=== PATIENT | male | born 1930 | race Caucasian/White ===

== ENCOUNTER → 2017-01-04 | Outpatient (CLI) | payer MEDICARE, OTHER ==
[~2017-01-04] MED LIST: ARTIFICIAL TEAR30 ML; ASPIRIN 81M81 MG/TA2 PO; CEPHALEXIN500 M1 PO; COMBIRESP IH; COREG 25MG25 MG/TAB PO; CYANOCOBAL1000 MCG/1; FLOMAX 0.40.4 MG/CAP PO; FOLIC ACID 11 MG/TA1 PO; FOSAMAX 70MG TA70 MG PO; LASIX 20MG TABL20 MG PO; LIPITOR20 MG PO; MAG-OX 400400 MG/TAB PO; MULTIPLE VITAMI1 CAP PO; NATURE'S BLEND400 IU PO; NORVASC 5MG5 MG/TAB PO; OSCAL 500 TAB500 MG PO; PACERONE100 MG PO; PLAVIX 75MG TAB75 MG PO; PRAVACHOL 20MG20 MG PO; PRIL40 PO; PRILOSEC 20MG20 MG PO; PRILOSEC10 MG PO; PRINIVIL2.5 MG PO; PRINIVIL20 MG PO; PRINZIDE 25 MG-1 TAB PO; PROVIGIL 100MG100 MG PO; TICLID250 MG PO; TYLENOL EXTRA500 M1 PO; VITAMIN E 400 U4001 PO; ZOCOR 20MG20 MG PO
[2017-01-04 11:27] LABS: BASO # 0.1 (0.0-0.2); BASO % 0.7 % (0.0-2.0); GRAN # 7.4 (1.4-6.5); LYMPH # 2.1 (1.2-3.4); LYMPH % 17.5 % (20.0-51.0); MEAN CELL VOLUME 101 fl (80.0-100.0); MEAN CORPUSCULAR HGB CONC 31 g/dl (33.0-37.0); MEAN PLATELET VOLUME 9.7 fl (7.4-10.4); MONO # 1.4 (0.1-0.6); MONO % 11.9 % (1.7-9.3); PLATELET COUNT 308 K/mm3 (130-400); RED BLOOD COUNT 3.11 M/mm3 (4.20-5.60); REDCELL DISTRIBUTION WIDTH-CV 14.7 % (11.5-14.5); WHITE BLOOD COUNT 12.1 K/mm3 (4.8-10.8)
[2017-01-04 11:28] LABS: HEMATOCRIT 31.4 % (42.0-52.0); HEMOGLOBIN 9.8 g/dl (13.5-18.0); MEAN CORPUSCULAR HEMOGLOBIN 32 pg (27.0-31.0)
== END ==
LOC: ZCOL.LAB 10:00
PROVIDERS: Emergency Medicine
DX: I21.4 Non-ST elevation (NSTEMI) myocardial infarction (principal)

== ENCOUNTER 2017-01-15 23:06 | Emergency (ER) | payer MEDICARE, OTHER ==
[~2017-01-15] VITALS: Ht 165.1 cm; Wt 70.5 kg
[~2017-01-15 23:06] MED LIST changes: -ASPIRIN 81M81 MG/TA2 PO; -COMBIRESP IH; -COREG 25MG25 MG/TAB PO; -MAG-OX 400400 MG/TAB PO; -PACERONE100 MG PO; -PRAVACHOL 20MG20 MG PO; -PRIL40 PO; -PRINIVIL2.5 MG PO; -PROVIGIL 100MG100 MG PO
[2017-01-15 23:09] VITALS: TEMP 97.9
[2017-01-16 00:28] LABS: BASO # 0.1 (0.0-0.2); BASO % 0.5 % (0.0-2.0); EOS # 0.8 (0.0-0.7); EOS % 7.1 % (0-4.0); GRAN # 7.2 (1.4-6.5); GRAN % 63.5 % (42.2-75.2); HEMATOCRIT 36.6 % (42.0-52.0); HEMOGLOBIN 11.7 g/dl (13.5-18.0); LYMPH # 1.8 (1.2-3.4); LYMPH % 15.8 % (20.0-51.0); MEAN CELL VOLUME 99 fl (80.0-100.0); MEAN CORPUSCULAR HEMOGLOBIN 32 pg (27.0-31.0); MEAN CORPUSCULAR HGB CONC 32 g/dl (33.0-37.0); MEAN PLATELET VOLUME 9.8 fl (7.4-10.4); MONO # 1.4 (0.1-0.6); MONO % 12.4 % (1.7-9.3); PLATELET COUNT 263 K/mm3 (130-400); RED BLOOD COUNT 3.71 M/mm3 (4.20-5.60); REDCELL DISTRIBUTION WIDTH-CV 14.6 % (11.5-14.5); WHITE BLOOD COUNT 11.3 K/mm3 (4.8-10.8)
[2017-01-16] MEDS ORDERED: PACERONE100 MG PO (00:30)
[2017-01-16] MEDS ORDERED: COREG 25MG25 MG/TAB PO (00:31)
[2017-01-16] MEDS ORDERED: ASPIRIN 81M81 MG/TA2 PO (00:31)
[2017-01-16] MEDS ORDERED: PRINIVIL2.5 MG PO (00:31)
[2017-01-16] MEDS ORDERED: MAG-OX 400400 MG/TAB PO (00:32)
[2017-01-16] MEDS ORDERED: PRIL40 PO (00:32)
[2017-01-16] MEDS ORDERED: PROVIGIL 100MG100 MG PO (00:32)
[2017-01-16] MEDS ORDERED: PRAVACHOL 20MG20 MG PO (00:32)
[2017-01-16] MEDS ORDERED: COMBIRESP IH (00:33)
[2017-01-16 00:35] LABS: PH 7 (5-8); SQUAMOUS EPITHELIAL None Seen /hpf; URINE APPEARANCE Hazy; URINE BACTERIA Rare /hpf; URINE BILIRUBIN Negative (NEGATIVE); URINE BLOOD 3+ (NEGATIVE); URINE COLOR Yellow; URINE GLUCOSE Negative (NEGATIVE); URINE KETONE Negative (NEGATIVE); URINE RBC 20-50 /hpf; URINE UROBILINOGEN Negative (NEGATIVE); URINE WBC 20-50 /hpf
[2017-01-16 00:39] LABS: ALBUMIN 3.2 gm/dL (3.5-5.0); BILIRUBIN,TOTAL 0.7 mg/dL (0.0-1.0); CALCIUM 10.4 mg/dL (8.4-10.2); CREATININE, serum 0.72 mg/dL (0.66-1.25); POTASSIUM 3.2 mmol/L (3.4-5.0); TOTAL PROTEIN 6.9 gm/dL (6.4-8.2)
[2017-01-16 01:10] VITALS: BP 125/79; PULSE 79
== END 2017-01-16 01:46 | disposition home or self-care (01) ==
LOC: COL.ER 23:06
PROVIDERS: Emergency Medicine
DX: T83.091A Other mechanical complication of indwelling urethral catheter, initial encounter (principal); R31.9 Hematuria, unspecified; I10 Essential (primary) hypertension; Z79.02 Long term (current) use of antithrombotics/antiplatelets
CPT/HCPCS: A4315

== ENCOUNTER → 2017-02-02 | Outpatient (CLI) | payer MEDICARE, OTHER ==
[~2017-02-02] MED LIST changes: +ASPIRIN 81M81 MG/TA2 PO; +COMBIRESP IH; +COREG 25MG25 MG/TAB PO; +MAG-OX 400400 MG/TAB PO; +PACERONE100 MG PO; +PRAVACHOL 20MG20 MG PO; +PRIL40 PO; +PRINIVIL2.5 MG PO; +PROVIGIL 100MG100 MG PO
== END ==
LOC: ZCOL.LAB 15:39
DX: E03.8 Other specified hypothyroidism (principal)

== ENCOUNTER → 2017-02-25 | Outpatient (CLI) | payer MEDICARE, OTHER | LOC: ZCOL.LAB 10:15 | DX: Z53.9 Procedure and treatment not carried out, unspecified reason (principal) ==

== ENCOUNTER → 2017-02-25 | Outpatient (CLI) | payer MEDICARE, OTHER ==
[2017-02-25 17:53] LABS: CALCIUM 10.5 mg/dL (8.4-10.2); CREATININE, serum 0.64 mg/dL (0.66-1.25); POTASSIUM 4.9 mmol/L (3.4-5.0)
== END ==
LOC: ZCOL.LAB 17:43
PROVIDERS: Emergency Medicine
DX: J44.1 Chronic obstructive pulmonary disease with (acute) exacerbation (principal); Z46.6 Encounter for fitting and adjustment of urinary device

== ENCOUNTER → 2017-03-10 | Outpatient (REF) ==
[2017-03-10 15:03] LABS: BASO # 0.1 (0.0-0.2); BASO % 0.4 % (0.0-2.0); EOS # 0.1 (0.0-0.7); EOS % 0.6 % (0-4.0); GRAN # 15.9 (1.4-6.5); GRAN % 85.6 % (42.2-75.2); LYMPH # 1.1 (1.2-3.4); LYMPH % 5.8 % (20.0-51.0); MEAN CELL VOLUME 96 fl (80.0-100.0); MEAN CORPUSCULAR HGB CONC 32 g/dl (33.0-37.0); MEAN PLATELET VOLUME 10.4 fl (7.4-10.4); MONO # 1.3 (0.1-0.6); MONO % 7.2 % (1.7-9.3); PLATELET COUNT 288 K/mm3 (130-400); RED BLOOD COUNT 3.72 M/mm3 (4.20-5.60); REDCELL DISTRIBUTION WIDTH-CV 14.9 % (11.5-14.5); WHITE BLOOD COUNT 18.6 K/mm3 (4.8-10.8)
[2017-03-10 15:42] LABS: HEMATOCRIT 35.6 % (42.0-52.0); HEMOGLOBIN 11.4 g/dl (13.5-18.0); MEAN CORPUSCULAR HEMOGLOBIN 31 pg (27.0-31.0)
== END ==
LOC: ZCOL.LAB 14:52
PROVIDERS: Emergency Medicine
DX: Z01.89 Encounter for other specified special examinations (principal)